=== PATIENT | male | born 1965 | race Caucasian/White ===

== ENCOUNTER → 2017-05-31 | Outpatient (CLI) | payer BC ==
--- NOTE | 2017-05-31 15:17 | Diagnostic Imaging Report ---
PROCEDURE:CHEST 2 VIEWS TECHNIQUE:PA and lateral chest INDICATION:Left upper chest pain COMPARISON:None. FINDINGS: Lungs are clear and symmetrically inflated. No pleural effusions. Normal heart size, mediastinal contour, and pulmonary vasculature. Normal skeleton for age. CONCLUSION: Normal. Dictated by: Dima Jolley M.D. on 05/31/2017 at 15:18 Electronically approved by: Dima Jolley M.D. on 05/31/2017 at 15:18
== END ==
LOC: RAD 14:48
PROVIDERS: ATTEND Family Medicine
DX: R07.89 Other chest pain (principal)
CPT/HCPCS: 71046

== ENCOUNTER 2020-11-08 10:27 | Emergency (ER) | payer BC ==
[~2020-11-08] VITALS: Ht 185.4 cm; Wt 99.8 kg
[2020-11-08] MEDS ORDERED: SODIUM CHLORIDE 0.9% 100 ML ONE (10:59)
[2020-11-08] MEDS ORDERED: SODIUM CHLORIDE 0.9% 100 ML 100 ML IV ONE (11:00)
[2020-11-08] MEDS ORDERED: CASIRIVIMAB/IMDEVIMAB 10 ML in SODIUM CHLORIDE 0.9% 100 ML IV ONE (11:00)
== END 2020-11-08 12:32 | disposition home or self-care (01) ==
LOC: ER 10:35
DX: R50.9 Fever, unspecified (principal); R05 Cough; U07.1 COVID-19; I10 Essential (primary) hypertension
CPT/HCPCS: 99283; J7050